=== PATIENT | female | born 1990 | race Hispanic/Latino ===

== ENCOUNTER → 2022-12-20 | Outpatient (CLI) | payer BC | END | disposition home or self-care (01) | LOC: RAH 10:32 | PROVIDERS: ATTEND Family Medicine | DX: R31.9 Hematuria, unspecified (principal); M54.50 Low back pain, unspecified; R10.9 Unspecified abdominal pain; M47.815 Spondylosis without myelopathy or radiculopathy, thoracolumbar region | CPT/HCPCS: 74176 ==